=== PATIENT | female | born 1975 ===

== ENCOUNTER 2016-10-10 17:04 | Emergency (ER) | payer BC, MEDICAID ==
[2016-10-10] MEDS ORDERED: METOCLOPRAMIDE HCL 5 MG/ML 2ML VIAL ONE (21:10)
[2016-10-10] MEDS ORDERED: SODIUM CHLORIDE 0.9% 1,000 ML ONE (21:10)
[2016-10-10] MEDS ORDERED: KETOROLAC TROMETHAMINE 30 MG/ML 1 ML VIAL ONE (21:10)
[2016-10-10] MEDS ORDERED: HYDROCODONE/ACETAMINOPHEN 5/325MG TABLET ONE (21:39)
[2016-10-10] MEDS ORDERED: ONDANSETRON 4 MG/2ML 2 ML VIAL ONE (21:39)
--- NOTE | 2016-10-10 22:03 | CT ---
Name: FRED JIMENEZ Exam: CT head without contrast Comparison: None Clinical history: Trauma 2 days ago. Headache and nausea. Technique: Helical CT was performed through the head. Angled axial reconstructions were obtained. Sagittal and coronal reconstructions were obtained as well. No contrast was given. An automated dose reduction technique was used to minimize patient radiation dose. Findings: There is no shift of the midline structures. Ventricles are of normal size and configuration. There is no mass, mass effect or hemorrhage. Cisterns are uneffaced. Posterior fossa is unremarkable. There is no fracture. Visualized paranasal sinuses and mastoid air cells are within normal limits. Impression: Negative unenhanced CT of the head Note: The above report was uploaded to [facility]'s electronic medical records system at 2159 hours.
== END 2016-10-10 22:56 | disposition home or self-care (01) ==
LOC: ED 17:04
DX: R51 Headache (principal); R11.0 Nausea